=== PATIENT | male | born 1950 | race Two or more races ===

== ENCOUNTER 2023-01-03 00:26 | Emergency (ER) | payer OTHER ==
[~2023-01-03] VITALS: Ht 185.4 cm; Wt 64.4 kg
[2023-01-03 07:57] VITALS: BP 100/65; TEMP 98.1; O2SAT 98
== END 2023-01-03 07:57 | disposition home or self-care (01) ==
LOC: ER 00:31
DX: S01.411A Laceration without foreign body of right cheek and temporomandibular area, initial encounter (principal); I10 Essential (primary) hypertension; W06.XXXA Fall from bed, initial encounter; Y93.89 Activity, other specified; Y92.89 Other specified places as the place of occurrence of the external cause; Y99.8 Other external cause status
CPT/HCPCS: 70450-TC